=== PATIENT | male | born 1970 | race Caucasian/White ===

== ENCOUNTER 2017-01-03 06:32 | Emergency (ER) | payer SELFPAY ==
[~2017-01-03] VITALS: Ht 195.6 cm; Wt 110.0 kg
[~2017-01-03 06:32] MED LIST: TOBR.3%O LEFT EYE; Z.0.NO CURRENT MEDS
[2017-01-03 06:34] VITALS: BP 145/90; PULSE 76; RESP 16; TEMP 98.2; O2SAT 97
[2017-01-03] MEDS ORDERED: IBUPROFEN 800 MG TAB PO ONE (06:45)
[2017-01-03] MEDS ORDERED: AMOX875T PO (06:52)
[2017-01-03] MEDS ORDERED: IBUP800T23 PO (06:52)
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
== END 2017-01-03 07:07 | disposition home or self-care (01) ==
LOC: NEPD 06:32
DX: K02.9 Dental caries, unspecified (principal); F17.200 Nicotine dependence, unspecified, uncomplicated
CPT/HCPCS: 99283